=== PATIENT | male | born 1985 | race American Indian/Alaskan Native ===

== ENCOUNTER 2017-04-05 06:55 | Emergency (ER) | payer SELFPAY ==
[2017-04-05 07:20] VITALS: BP 132/98
[2017-04-05] MEDS ORDERED: NORCO 5/325 PO ONE (09:55)
--- NOTE | 2017-04-05 09:59 | Emergency Department Report ---
Upper Extremity - HPI Upper Extremity: Left Forearm Occurred When: 4 Days Mechanism: Unsure Severity: severe Symptoms: Yes Pain with Movement, No Deformity, No Limited Range of Movement, No Numbness (tingling to the fingers), No Weakness, No Swelling, No Bruising/ Ecchymosis, No Laceration or Abrasion Other History: 31-year-old -[place] male comes in for complaint of left elbow pain that started about Tuesday. Patient reports that he had hit his elbow on Tuesday and pain is progressively got worse to the point where last night he had to come in. Patient reports that he is taking ibuprofen which equals up to 400 mg times one. As well as to the trauma doctor 50 mg last night without much relief. Patient denies any past medical history currently takes no medication and has no known drug allergies. <SUSANNA DUMSA - Last Filed: 04/05/17 10:41> <JAY TAPIA - Last Filed: 04/05/17 15:53> - [facility] Chief Complaint: Extremity Injury, Upper Stated Complaint: LT ARM PAIN Time Seen by Provider: 04/05/17 09:54 ED Review of Systems ROS: Stated complaint: LT ARM PAIN Other details as noted in HPI Constitutional: denies: chills, fever Eyes: denies: eye pain, eye discharge, vision change ENT: denies: ear pain, throat pain Respiratory: denies: cough, shortness of breath, wheezing Cardiovascular: denies: chest pain, palpitations Endocrine: no symptoms reported Gastrointestinal: denies: abdominal pain, nausea, diarrhea Genitourinary: denies: urgency, dysuria Musculoskeletal: arthralgia (left elbow pain) Skin: denies: rash, lesions Neurological: denies: headache, weakness, paresthesias Psychiatric: denies: anxiety, depression Hematological/Lymphatic: denies: easy bleeding, easy bruising <SUSANNA DUMAS - Last Filed: 04/05/17 10:41> ROS: Stated complaint: LT ARM PAIN Other details as noted in HPI <JAY TAPIA - Last Filed: 04/05/17 15:53> ED Past Medical Hx - Past Medical History Previous Medical History?: No - Surgical History Past Surgical History?: No - Social History Smoking Status: Current Every Day Smoker Substance Use Type: Non Opiate Pain <SUSANNA DUMAS - Last Filed: 04/05/17 10:41> <JAY TAPIA - Last Filed: 04/05/17 15:53> - Medications Home Medications: Home Medications Medication Instructions Recorded Confirmed Last Taken Type Cyclobenzaprine [Flexeril 10 MG 10 mg PO TID PRN #15 tablet 08/12/15 Unknown Rx TAB] traMADol [Ultram] 50 mg PO Q4HR PRN #15 tablet 08/12/15 Unknown Rx Ibuprofen [Motrin 600 MG tab] 600 mg PO Q8H PRN #30 tablet 04/05/17 Unknown Rx Upper Extremity Exam - Exam General: Vital signs noted. No distress. Alert and acting appropriately. Head and Torso: No HEENT Abnormality, No Neck Tenderness, No Chest/Lungs Abnormality, No Abdominal Tenderness, No Back Tenderness Shoulder Exam: Yes Normal Range of Motion in Shoulder, No Shoulder Tenderness, No Clavicle Tenderness, No Shoulder Deformity, No AC Joint Tenderness Elbow: Yes Elbow Tenderness, Yes Normal Range of Motion in Elbow, No Elbow Deformity Forearm: No Forearm Tenderness, No Forearm Deformity, No Pain with Pronation, No Pain with Supination Wrist: No Wrist Tenderness, No Normal ROM in Wrist, No Wrist Deformity, No Snuffbox Tenderness, No Pain with Axial Thumb Compression Hand: Yes Normal ROM in Digit(s), No Hand Tenderness, No Hand Deformity, No Digit Tenderness, No Digit(s) Deformity CMS Exam: Yes Normal Distal Pulses, Yes Normal Capillary Refill, Yes Normal Distal Sensation, No Broken Skin <SUSANNA DUMAS - Last Filed: 04/05/17 10:41> - Exam General: Vital signs noted. No distress. Alert and acting appropriately. <JAY TAPIA - Last Filed: 04/05/17 15:53> ED Course Vital Signs 04/05/17 07:17 Temperature 97.7 F Pulse Rate 81 Respiratory 18 Rate Blood Pressure 132/98 O2 Sat by Pulse 98 Oximetry <ALESIASUSANNA Olson - Last Filed: 04/05/17 10:41> Vital Signs 04/05/17 04/05/17 07:17 11:20 Temperature 97.7 F 98.7 F Pulse Rate 81 80 Respiratory 18 18 Rate Blood Pressure 132/98 Blood Pressure 132/98 [Left] O2 Sat by Pulse 98 99 Oximetry <CHASTITY TAPIAA Marcial - Last Filed: 04/05/17 15:53> ED Medical Decision Making - Medical Decision Making Patient has been evaluated by this provider fast track. Discussed with patient that we will do an x-ray of his left elbow. We will give patient pain medication will consist of Bison 5 mg over 325. We will determine treatment based on x-ray results. Patient verbalized understanding <SUSANNA DUMAS - Last Filed: 04/05/17 10:41> - Radiology Data Radiology results: report reviewed (xr left elbow, normal) <REGINAJAY C - Last Filed: 04/05/17 15:53> Critical care attestation.: If time is entered above; I have spent that time in minutes in the direct care of this critically ill patient, excluding procedure time. <SUSANNA DUMAS - Last Filed: 04/05/17 10:41> Critical care attestation.: If time is entered above; I have spent that time in minutes in the direct care of this critically ill patient, excluding procedure time. <REGINAJAY Marcial - Last Filed: 04/05/17 15:53> ED Disposition Is pt being admited?: No Does the pt Need Aspirin: No <SUSANNA DUMAS - Last Filed: 04/05/17 10:41> <REGINAJAY Marcial - Last Filed: 04/05/17 15:53> Disposition: DISCHARGED TO HOME OR SELFCARE Condition: Stable Instructions: Elbow Sprain (ED) Additional Instructions: Please take pain medication as prescribed. There is no fracture of your elbow. You can do ice therapy. Prescriptions: Ibuprofen [Motrin 600 MG tab] 600 mg PO Q8H PRN #30 tablet PRN Reason: Pain Referrals: PRIMARY CARE,MD [Primary Care Provider] - 3-5 Days Forms: Accompanied Note, Work/School Release Form(ED)
--- NOTE | 2017-04-05 10:35 | XRay Report ---
LEFT ELBOW, 3 views: History: Left elbow pain after trauma The bony architecture is intact without evidence of fracture or dislocation. No significant soft tissue abnormality is seen. IMPRESSION: Normal left elbow.
== END 2017-04-05 11:20 | disposition home or self-care (01) ==
LOC: ED 06:55
DX: M25.522 Pain in left elbow (principal); W22.8XXA Striking against or struck by other objects, initial encounter; Y93.89 Activity, other specified; Y92.89 Other specified places as the place of occurrence of the external cause; Y99.8 Other external cause status

== ENCOUNTER 2018-05-07 05:56 | Emergency (ER) | payer SELFPAY ==
[2018-05-07] MEDS ORDERED: TYLENOL PO ONE ×2 (06:10→07:21)
[2018-05-07 06:11] VITALS: BP 137/83
[2018-05-07] MEDS ORDERED: TYLENOL ONE (06:13)
== END 2018-05-07 10:13 ==
LOC: ED 05:56
DX: M25.559 Pain in unspecified hip (principal); Z53.21 Procedure and treatment not carried out due to patient leaving prior to being seen by health care provider

== ENCOUNTER 2019-03-25 01:44 | Emergency (ER) | payer SELFPAY ==
[2019-03-25 01:56] VITALS: BP 118/79
== END 2019-03-25 02:00 | disposition left against medical advice (07) ==
LOC: ED 01:44
DX: R07.0 Pain in throat (principal); Z53.21 Procedure and treatment not carried out due to patient leaving prior to being seen by health care provider